=== PATIENT | female | born 1945 | race Two or more races ===

== ENCOUNTER 2020-09-23 11:02 | Outpatient (CLI) | payer BC, MEDICARE ==
[2020-09-23] MEDS ORDERED: CHOL10003 PO (11:29)
== END 2020-09-23 23:59 | disposition home or self-care (01) ==
LOC: STAR 11:02
PROVIDERS: ATTEND Internal Medicine Gastroenterology
DX: Z01.812 Encounter for preprocedural laboratory examination (principal); Z20.822 Contact with and (suspected) exposure to COVID-19; R93.2 Abnormal findings on diagnostic imaging of liver and biliary tract
CPT/HCPCS: 87635; 93005

== ENCOUNTER 2020-09-29 08:08 | Day surgery (SDC) | payer MEDICARE ==
[~2020-09-29] VITALS: Ht 157.5 cm; Wt 68.8 kg
[~2020-09-29 08:08] MED LIST: CHOL10003 PO
[2020-09-29] MEDS ORDERED: CHLORHEXIDINE 15 ML UDC MM ONE (09:00)
[2020-09-29] MEDS ORDERED: LACTATED RINGERS 1,000 ML IV SCH (09:00)
[2020-09-29] MEDS ORDERED: PROPOFOL 10 MG/ML, 20ML ONE ×2 (11:19)
== END 2020-09-29 12:45 | disposition home or self-care (01) ==
LOC: OUT 08:08 → MERGE 10:00 → OUT 12:45
PROVIDERS: ATTEND Internal Medicine Gastroenterology
DX: R93.3 Abnormal findings on diagnostic imaging of other parts of digestive tract (principal); K86.2 Cyst of pancreas; K29.50 Unspecified chronic gastritis without bleeding; I10 Essential (primary) hypertension; E78.00 Pure hypercholesterolemia, unspecified; Z79.899 Other long term (current) drug therapy; Z88.8 Allergy status to other drugs, medicaments and biological substances
CPT/HCPCS: 43239; 43242; 88305; J2704; J7120; 82150; 82378